=== PATIENT | male | born 1980 | race Caucasian/White ===

== ENCOUNTER 2018-12-02 20:59 | Emergency (ER) | payer OTHER ==
[~2018-12-02] VITALS: Ht 188 cm; Wt 107.0 kg
[2018-12-02 21:01] VITALS: Ht 188 cm; Wt 107.0 kg
[2018-12-02] MEDS ORDERED: HYDROCODONE/APAP (10/325) TAB PO ONE (22:00)
[2018-12-02] MEDS ORDERED: TRAM50TA2 PO (22:42)
--- NOTE | 2018-12-02 22:46 | ERD ---
ER Documentation Chief Complaint Chief Complaint abd pain and constipation x 3 days HPI 38-year-old male with abdominal pain and constipation for the past 3 days. Pain is mild to moderate intensity with no exacerbating alleviating factors. Patient is here in police custody. Denies any fevers or chills. Denies any other current issues. ROS All systems reviewed and are negative except as per history of present illness. Medications Home Meds Active Scripts Tramadol HCl (Tramadol HCl) 50 Mg Tablet, 50 MG PO Q4 PRN for PAIN, #20 TAB Prov:ISAURO MORRIS 12/02/18 PMhx/Soc Hx Neurological Disorder: No Hx Respiratory Disorders: No Hx Cardiac Disorders: No Hx Miscellaneous Medical Probl: Yes (diverticulitis) Hx Alcohol Use: No Hx Substance Use: No Hx Tobacco Use: Yes Smoking Status: Current every day smoker Physical Exam Vitals Vital Signs Date Temp Pulse Resp B/P (MAP) Pulse Ox O2 O2 Flow FiO2 Time Delivery Rate 12/02/18 98.1 119 20 144/93 97 21:01 (110) Physical Exam Const: No acute distress Head: Atraumatic Eyes: Normal Conjunctiva ENT: Normal External Ears, Nose and Mouth. Neck: Full range of motion. No meningismus. Resp: Clear to auscultation bilaterally Cardio: Regular rate and rhythm, no murmurs Abd: Soft, non tender, non distended. Normal bowel sounds Skin: No petechiae or rashes Back: No midline or flank tenderness Ext: No cyanosis, or edema Neur: Awake and alert Psych: Normal Mood and Affect Result Diagram: 12/02/18214412/02/182144 Results 24 hrs Laboratory Tests Test 12/02/18 21:45 White Blood Count 12.0 10^3/ul Red Blood Count 5.51 10^6/ul Hemoglobin 16.7 g/dl Hematocrit 49.3 % Mean Corpuscular Volume 89.5 fl Mean Corpuscular Hemoglobin 30.3 pg Mean Corpuscular Hemoglobin Concent 33.9 g/dl Red Cell Distribution Width 12.4 % Platelet Count 307 10^3/UL Mean Platelet Volume 10.9 fl Immature Granulocytes % 0.800 % Neutrophils % 75.8 % Lymphocytes % 13.8 % Monocytes % 7.7 % Eosinophils % 1.2 % Basophils % 0.7 % Nucleated Red Blood Cells % 0.0 /100WBC Immature Granulocytes # 0.090 10^3/ul Neutrophils # 9.1 10^3/ul Lymphocytes # 1.7 10^3/ul Monocytes # 0.9 10^3/ul Eosinophils # 0.1 10^3/ul Basophils # 0.1 10^3/ul Nucleated Red Blood Cells # 0.0 10^3/ul Sodium Level 137 mmol/L Potassium Level 4.9 mmol/L Chloride Level 99 mmol/L Carbon Dioxide Level 26 mmol/L Anion Gap 12 Blood Urea Nitrogen 17 mg/dl Creatinine 1.21 mg/dl Est Glomerular Filtrat Rate mL/min > 60 mL/min Glucose Level 384 mg/dl Calcium Level 9.7 mg/dl Total Bilirubin 0.8 mg/dl Direct Bilirubin 0.00 mg/dl Indirect Bilirubin 0.8 mg/dl Aspartate Amino Transf (AST/SGOT) 20 IU/L Alanine Aminotransferase (ALT/SGPT) 23 IU/L Alkaline Phosphatase 139 IU/L Total Protein 8.2 g/dl Albumin 4.5 g/dl Globulin 3.70 g/dl Albumin/Globulin Ratio 1.21 Lipase 496 U/L Current Medications Medications Dose Sig/Araceli Start Time Status Last (Trade) Ordered Route PRN Stop Time Admin Dose Reason Admin 1 tab ONCE ONCE 12/02/18 DC 12/02/18 Acetaminophen PO 22:00 12/02/18 22:14 / 22:01 Hydrocodone Bitart ([place] (10)) Procedures/MDM Medical decision m[age]-year-old male with history of mild pancreatitis and abdominal pain. At this point he feels stable for trial of outpatient management will be discharged in police custody. Patient's gastrointestinal s ymptoms have stabilized while in the department. No evidence of severe dehydration, sepsis, or surgical abdomen. Extensive discussion with family and patient that occult disease cannot be ruled out. 8 hour recheck for repeat abdominal exam is planned. Departure Diagnosis: Primary Impression: Abdominal pain Abdominal location: unspecified location Qualified Codes: R10.9 - Unspecified abdominal pain Condition: Stable Patient Instructions: Abdominal Pain, Fpc Clearance ISAURO MORRIS Dec 02, 2018 22:46
[2018-12-02 22:54] VITALS: BP 135/81; PULSE 79; RESP 20
== END 2018-12-02 22:56 ==
LOC: E/R 20:59
DX: R10.9 Unspecified abdominal pain (principal); F17.210 Nicotine dependence, cigarettes, uncomplicated
CPT/HCPCS: 80053; 81003; 83690; 85025; 99283